=== PATIENT | female | born 1995 ===

== ENCOUNTER → 2018-08-27 | Outpatient (REF) | payer OTHER ==
[2018-08-27 19:59] LABS: PLATELET COUNT, AUTOMATED 294 K/uL (150-450)
== END ==
PROVIDERS: ATTEND Nurse Practitioner Family
DX: M79.605 Pain in left leg (principal)
CPT/HCPCS: 82040; 82247; 82310; 82374; 82435; 82565; 82947; 84075; 84132; 84155; 84295; 84450; 84460; 84520; 85025

== ENCOUNTER → 2018-08-30 | Outpatient (CLI) | payer OTHER ==
--- NOTE | 2018-08-30 14:28 | RADIOLOGY IMAGING REPORT ---
FACILITY: [facility] PATIENT NAME: Zoila Dean : 1995 MR: [id number] V: [id number] EXAM DATE: ORDERING PHYSICIAN: SILVIA DELVALLE TECHNOLOG[place]: [place] [facility] [place] Zo[place] : 1995 Visit/Account:[id number] Date of Sevice: 08/30/2018 Venous Doppler ultrasound left lower extremity Indication: Cramping in the left calf. Evaluate for DVT. Comparison: None Available Findings: Duplex Doppler and color flow imaging was performed. The common femoral, femoral, and popl iteal veins are all patent and compressible with normal Doppler wave forms. There are normal respons es to augmentation. The posterior tibial and peroneal veins are patent in the calf. The proximal greater saphenous vein is also normal. IMPRESSION: 1. No evidence of deep venous thrombosis of the left lower extremity. Report Dictated By: Freddy Cifuentes at 08/30/2018 2:19 PM Report E-Signed By: Freddy Cifuentes at 08/30/2018 2:21 PM WSN:[email or web address]
== END ==
LOC: RAD 13:14
PROVIDERS: ATTEND Nurse Practitioner Family
DX: M79.605 Pain in left leg (principal)